=== PATIENT | female | born 1965 | race Caucasian/White ===

== ENCOUNTER 2018-09-06 09:17 | Day surgery (SDC) | payer OTHER ==
[~2018-09-06 09:17] MED LIST: CEFAZOLIN 1 GM INJ; DEXAMETHASONE 4 MG/ML 1 ML INJ; FENTAnyl 50 MCG/ML VIAL; LIDOCAINE 2% (SDV) 5 ML INJ; METOCLOPRAMIDE 10 MG INJ; MIDAZOLAM 1 MG/ML 2 ML INJ; ONDANSETRON 4 MG INJ; PROPOFOL 20 ML
[2018-09-06] MEDS ORDERED: ROPIVACAINE 0.5 % 30 ML VIAL (10:05)
[2018-09-06] MEDS ORDERED: HYDROmorphONE 1 MG/5 ML IV SYRINGE IV (11:00)
[2018-09-06] MEDS ORDERED: ONDANSETRON 4 MG INJ IV (11:00)
[2018-09-06] MEDS ORDERED: LEVALBUTEROL (NEB) 1.25 MG/0.5 ML AMP HHN (11:00)
[2018-09-06] MEDS ORDERED: IPRATROPIUM (NEB) 0.5 MG/2.5 ML AMP HHN (11:00)
[2018-09-06] MEDS ORDERED: DIPHENHYDRAMINE 50 MG INJ IV (11:00)
[2018-09-06] MEDS ORDERED: KETOROLAC 30 MG INJ IV (11:00)
[2018-09-06] MEDS ORDERED: FENTAnyl 50 MCG/ML VIAL IV (11:00)
[2018-09-06] MEDS ORDERED: BUPIVACAINE 0.5% (SDV) 30 ML INJ (11:17)
== END 2018-09-06 14:00 | disposition home or self-care (01) ==
LOC: SDS 09:17
DX: G56.01 Carpal tunnel syndrome, right upper limb (principal); I10 Essential (primary) hypertension
CPT/HCPCS: 64721; 71045; 84703

== ENCOUNTER 2018-09-20 13:02 | Day surgery (SDC) | payer OTHER ==
[~2018-09-20 13:02] MED LIST changes: -CEFAZOLIN 1 GM INJ; -DEXAMETHASONE 4 MG/ML 1 ML INJ; -FENTAnyl 50 MCG/ML VIAL; +LACTATED RINGER'S 1,000 ML IV*; -LIDOCAINE 2% (SDV) 5 ML INJ; -METOCLOPRAMIDE 10 MG INJ; -MIDAZOLAM 1 MG/ML 2 ML INJ; -ONDANSETRON 4 MG INJ; -PROPOFOL 20 ML
[2018-09-20] MEDS ORDERED: PROPOFOL 20 ML (15:16)
[2018-09-20] MEDS ORDERED: LIDOCAINE 2% (SDV) 5 ML INJ (15:16)
[2018-09-20] MEDS ORDERED: MIDAZOLAM 1 MG/ML 2 ML INJ (15:17)
[2018-09-20] MEDS ORDERED: DEXAMETHASONE 4 MG/ML 1 ML INJ (15:23)
[2018-09-20] MEDS ORDERED: CEFAZOLIN 1 GM INJ (15:23)
[2018-09-20] MEDS ORDERED: ONDANSETRON 4 MG INJ (15:23)
[2018-09-20] MEDS ORDERED: FAMOTIDINE 20 MG INJ (15:23)
[2018-09-20] MEDS: CEFAZOLIN 2 GM/50 ML (PMX) 50 ML IVPB (15:24)
[2018-09-20] MEDS ORDERED: FENTAnyl 50 MCG/ML VIAL (15:29)
[2018-09-20] MEDS: BUPIVACAINE 0.5% (SDV) 30 ML INJ (15:29)
[2018-09-20] MEDS: POLYMYXIN/BACITRACIN 1L IRRIG (15:30)
[2018-09-20] MEDS: OXYCODONE/ACETAMINOPHEN (5/325) TAB PO (16:26)
[2018-09-20] MEDS ORDERED: ONDANSETRON 4 MG INJ IV (16:30)
[2018-09-20] MEDS ORDERED: HYDROmorphONE 1 MG/5 ML IV SYRINGE IV ×3 (16:30)
[2018-09-20] MEDS ORDERED: FENTAnyl 50 MCG/ML VIAL IV ×3 (16:30)
[2018-09-20] MEDS ORDERED: PROCHLORPERAZINE 10 MG INJ IV (16:30)
[2018-09-20] MEDS ORDERED: DIPHENHYDRAMINE 50 MG INJ IV (16:30)
[2018-09-20] MEDS ORDERED: MEPERIDINE 25 MG INJ IV (16:30)
== END 2018-09-20 16:53 | disposition home or self-care (01) ==
LOC: SDS 13:02
DX: G56.02 Carpal tunnel syndrome, left upper limb (principal)
CPT/HCPCS: 64721